=== PATIENT | female | born 1955 | race Caucasian/White ===

== ENCOUNTER → 2019-06-01 20:05 | Outpatient (CLI) | payer BC | END | disposition home or self-care (01) | LOC: D.MAMMO 09:30 | PROVIDERS: ATTEND Family Medicine | DX: Z12.31 Encounter for screening mammogram for malignant neoplasm of breast (principal) ==

== ENCOUNTER 2020-08-02 09:30 | Outpatient (CLI) | payer BC | END 2020-08-02 10:00 | disposition home or self-care (01) | LOC: D.MAMMO 09:30 | PROVIDERS: ATTEND Family Medicine | DX: Z12.31 Encounter for screening mammogram for malignant neoplasm of breast (principal) ==